=== PATIENT | female | born 2005 | race Caucasian/White ===

== ENCOUNTER 2024-10-29 18:42 | Emergency (ER) | payer MEDICAID, SELFPAY ==
[2024-10-29 18:47] VITALS: BP 103/82; PULSE 77; TEMP 36.4; O2SAT 95; BMI 21.7
--- NOTE | 2024-10-29 19:00 | CT_ITS ---
[address] [address] Patient Name: RONALDO DUNLAP MRN: [facility]:[id number] date: 2005 Sex: F Assigned Patient Location: ER Current Patient Location: ER Accession/Order Number: [id number] Exam Date: 10/29/2024 19:57 Report Date: 10/29/2024 20:30 At the request of: RAIZA OVIEDO Procedure: CT abdomen pelvis w con EXAM: CT abdomen pelvis w con HISTORY: ABDOMINAL PAIN COMPARISON: None. TECHNIQUE: CT abdomen pelvis with IV contrast 100 mL Omnipaque 300. Axial scans with reformatted coronal and sagittal images. Individualized radiation dose reduction used for this exam. FINDINGS: Lower chest: Lung bases clear, no acute abnormality. ABDOMEN: Liver, adrenal glands, pancreas spleen unremarkable. Normal-appearing fluid-filled gallbladder. No duct dilatation. No ascites or free fluid. No adenopathy. Normal enhancement of aorta and branches. Normal venous enhancement. Normal symmetric renal enhancement without mass or hydronephrosis. Normal ureters. No bowel dilatation ileus or obstruction. Prominent bowel wall possible edema ascending, transverse and left colon versus artifact from under distention. No adjacent pericolonic fluid or inflammation. Small to moderate stool the rectum which is unremarkable. Normal-appearing appendix right pelvis without surrounding fluid or inflammation. PELVIS: No solid mass adenopathy or free fluid. Small follicle right ovary. Uterus unremarkable. Normal-appearing bladder MUSCULOSKELETAL: No suspicious bony abnormality. CT/CT abdomen pelvis w con IMPRESSION: 1. Diminished caliber possible bowel wall edema ascending, transverse and left colon versus artifact from under distention. Correlate for possible colitis. No definite pericolonic fluid or inflammation. 2. Exam otherwise unremarkable. No ascites or free fluid. Normal-appearing appendix. Electronically authenticated by: NOHEMY YO Date: 10/29/2024 20:30
--- NOTE | 2024-10-29 19:03 | ED_ITS ---
HPI HPI - General Adult General Chief complaint: Nausea/Vomiting/Diarrhea Stated complaint: VOMITING Time Seen by Provider: 10/29/24 18:52 Source: patient and family Mode of arrival: walk-in Limitations: no limitations History of Present Illness HPI narrative: 19-year-old female to the emergency department with chief complaint of abdominal pain. Patient reports she woke up this morning with cramping upper abdominal pain. She reports associate with nausea and some vomiting. She did have a loose bowel movement today. She denies any blood in the stool. No blood in the vomit. She has not been able to keep any medications down today. She did take some Zofran at home with relief of symptoms. No fever or chills. She denies . Related Data Home Medications ?Medication ?Instructions ?Recorded ?Confirmed No Known Home Medications 10/29/24 10/29/24 Previous Rx's ?Medication ?Instructions ?Recorded dicyclomine 10 mg capsule 10 mg PO QID PRN abdominal pain 10/29/24 #12 caps famotidine 20 mg tablet 20 mg PO BID 6 weeks #84 tabs 10/29/24 ondansetron 4 mg disintegrating 4 mg PO Q8H PRN nausea and 10/29/24 tablet vomiting 4 days #16 tabs promethazine 25 mg rectal 25 mg MI Q6H PRN nausea and 10/29/24 suppository vomiting #12 ea Allergies Allergy/AdvReac Type Severity Reaction Status Date / Time No Known Drug Allergies Allergy Verified 10/29/24 18:47 Opioid HPI Opioid Management Most Recent Opioid Data: Last Pain Scale 8 10/29/24 20:28 10/29/24 Last ED Pain Assessment 10/29/24 20:28 Review of Systems ROS Status of ROS 10 or more systems reviewed and unremark able except as noted in history and below PFSH PFSH Social History Little interest or pleasure in doing things: not at all Feeling down, depressed, or hopeless: not at all Exam Narrative Exam Narrative: VITALS: I have reviewed the triage vital signs. GENERAL: Uncomfortable appearing adult female holding upper abdomen. Mother at the bedside NEURO: Alert and oriented. Moves all extremities. Face is symmetric and expressive. EYES: PERRL. No scleral icterus or conjunctival injection. No discharge. HENT: Normocephalic, atraumatic. Hearing is grossly intact. Nares grossly patent and without discharge. Mucous membranes moist. NECK: No JVD. Patient moves neck without restriction. CARDIO: Rhythm regular. Normal rate. No murmur, rub, or gallop. Pulses equal bilaterally in the upper and lower extremity. No lower extremity edema. PULM: Lungs clear to auscultation in all melgar. No wheezes, rales, or rhonchi. No conversational dyspnea. No splinting, stridor, or accessory muscle use. GI/: Abdomen is soft. Epigastric tenderness. No rebound or guarding. Normoactive bowel sounds. EXTREMITIES: Symmetric muscle bulk. No joint swelling. No clubbing, cyanosis, or deformity. SKIN: Warm and dry. Normal turgor. No rash or lesions appreciated. PSYCH: Anxious Constitutional Vital Signs, click to edit/add: Last Vital Signs Temp 97.6 F 10/29/24 18:47 Pulse 99 H 10/29/24 20:35 Resp 18 10/29/24 20:35 BP 109/60 10/29/24 20:35 Pulse Ox 100 10/29/24 20:35 O2 Del Method Room Air 10/29/24 18:47 Course Vital Signs Vital signs: Vital Signs Temperature 97.6 F 10/29/24 18:47 Pulse Rate 77 10/29/24 18:47 Respiratory Rate 20 10/29/24 18:47 Blood Pressure 103/82 10/29/24 18:47 Pulse Oximetry 95 10/29/24 18:47 Oxygen Delivery Method Room Air 10/29/24 18:47 Temperature 97.6 F 10/29/24 18:47 Pulse Rate 99 H 10/29/24 20:35 Respiratory Rate 18 10/29/24 20:35 Blood Pressure 109/60 10/29/24 20:35 Pulse Oximetry 100 10/29/24 20:35 Oxygen Delivery Method Room Air 10/29/24 18:47 Medical Decision Making MDM Narrative Medical decision making narrative: 19-year-old female to the emergency department chief complaint of upper abdominal pain, nausea, vomiting. Vital stable, the patient is afebrile. She is uncomfortable and tender in her upper abdomen. No peritoneal signs. Differential includes gastroenteritis, pancreatitis, acute cholecystitis. Basic labs, CT abdomen pelvis, Toradol/Bentyl/Zofran/Pepcid/ morphine for symptoms. Patient agrees with this plan. Lab work reviewed and noted. She does have a leukocytosis. Chemistry is unremarkable. Lipase normal. hCG is negative. CT abdomen pelvis results were reviewed. Question of some colitis which does correlate gastroenteritis symptoms. No other acute findings. Patient's symptoms did improve significantly. She felt much improved. She was given a liter of fluids as she does look a little dry on her labs. She was able to tolerate oral intake. She is appropriate for discharge home. Discussed g radual return, brat diet, use of medications for symptoms. She was prescribed Bentyl, Zofran, Pepcid, MI Phenergan if she cannot take oral. GI referral if her symptoms do not improve or further evaluation of colitis. Return precautions were discussed. All questions were answered. The patient was discharged home. Medical Records Medical records reviewed: Yes I reviewed the patient's medical records Lab Data Lab results reviewed: Yes I reviewed the patient's lab results Labs: Lab Results 10/29/24 Range/Units 19:16 WBC 21.8 H (4.0-11.0) 10^3/uL RBC 4.63 (4.20-5.40) 10^6/uL Hgb 13.8 (12.0-16.0) g/dL Hct 39.7 (36.0-48.0) % MCV 85.7 (81.0-99.0) fL MCH 29.8 (26.7-34.0) pg MCHC 34.8 (29.9-35.2) g/dL RDW 11.7 (11.0-15.0) % Plt Count 296 (150-450) 10^3/uL MPV 9.1 L (9.5-13.5) fL Seg Neuts % (Manual) 94.0 H (43.0-75.0) Band Neutrophils % 0.0 (0-5) % Lymphocytes % (Manual) 4.0 L (20.5-60.0) % Monocytes % (Manual) 2.0 (1.7-12.0) % Eosinophils % (Manual) 0.0 L (0.9-7.0) % Basophils % (Manual) 0.0 L (0.2-2.0) % Neutrophils # (Manual) 20.49 H (1.4-6.5) 10^3/uL Band Neutrophils # 0.0 (0.0-0.3) 10^3/uL Lymphocytes # (Manual) 0.87 L (1.20-3.80) 10^3/uL Monocytes # (Manual) 0.43 (0.30-0.80) 10^3/uL Eosinophils # (Manual) 0.00 (0.00-0.70) 10^3/uL Basophils # (Manual) 0.00 (0.00-0.10) 10^3/uL Sodium 143 (136-145) mmol/L Potassium 3.6 (3.5-5.1) mmol/L Chloride 104 (98-107) mmol/L Carbon Dioxide 17.4 L (21.0-32.0) mmol/L Anion Gap 25.2 BUN 9.0 (7.0-18.0) mg/dL Creatinine 1.12 H (0.55-1.02) mg/dL Est GFR ( Amer) >60 (>=60 mL/min/1.73m^2) Est GFR (Non-Af Amer) >60 (>=60 mL/min/1.73m^2) BUN/Creatinine Ratio 8.0 Glucose 150 H (74-106) mg/dL Calcium 10.1 (8.5-10.1) mg/dL Total Bilirubin 0.8 (0.2-1.0) mg/dL AST 17 (15-37) U/L ALT 22 (14-59) U/L Alkaline Phosphatase 59 (46-116) U/L Total Protein 8.2 (6.4-8.2) g/dL Albumin 4.6 (3.4-5.0) g/dL Globulin 3.6 g/dL Albumin/Globulin Ratio 1.3 Lipase 18.0 (16.0-77.0) U/L Serum HCG, Qual Negative (NEGATIVE) Imaging Data CT scan - abdomen: Attestation: I have reviewed the pertinent imaging results. Radiologist's impression: ITS Impressions Abdomen/Pelvis CT 10/29/24 19:00 IMPRESSION: 1. Diminished caliber possible bowel wall edema ascending, transverse and left colon versus artifact from under distention. Correlate for possible colitis. No definite pericolonic fluid or inflammation. 2. Exam otherwise unremarkable. No ascites or free fluid. Normal-appearing appendix. Electronically authenticated by: NOHEMY YO Date: 10/29/2024 20:30 Discharge Plan Discharge Chief Complaint: Nausea/Vomiting/Diarrhea Clinical Impression: Gastroenteritis Patient Disposition: Home, Self-Care Time of Disposition Decision: 21:36 Condition: Good Mode of Transportation: Private Vehicle Prescriptions / Home Meds: New ondansetron 4 mg tablet,disintegrating 4 mg PO Q8H PRN (Reason: nausea and vomiting) 4 Days Qty: 16 0RF dicyclomine 10 mg capsule 10 mg PO QID PRN (Reason: abdominal pain) Qty: 12 0RF famotidine 20 mg tablet 20 mg PO BID 42 Days Qty: 84 0RF promethazine 25 mg suppository 25 mg MI Q6H PRN (Reason: nausea and vomiting) Qty: 12 0RF No Action No Known Home Medications Print Language: [place]ian Instructions: Acute Nausea and Vomiting (ED), Colitis (ED) Additional Instructions: Call the office of your primary care doctor to arrange for follow-up within the above-stated timeframe. Your ED visit was focused on your acute issue and does not replace primary care. You should review your labs, imaging, and diagnoses from this ED visit with your primary care physician. There may be non-emergent/ incidental findings that need further evaluation. You should review your vital signs including blood pressure with your PCP. If you were prescribed medications you should discuss possible side-effects and drug interactions with your pharmacist. Call 911 or go to the nearest Emergency Department if you develop any new or worsening symptoms. Seek immediate medical attention if you develop: worsening abdominal pain, new or worsening nausea, new or worsening vomiting, new or worsening diarrhea, chest pain, shortness of breath, pain with urination, problems urinating, fever, chills, weakness, or any new or worsening symptoms. Referrals: Leida Tucker MD [Physician] - 1 week (Follow-up with GI if your symptoms continue for further evaluation of colitis) MARY JACOBS [Primary Care Provider] - 1 week
[2024-10-29] MEDS: ONDANSETRON PF 4 MG/2 ML VIAL IV (19:12)
[2024-10-29] MEDS: KETOROLAC TROMETHAMINE 30 MG/ML VIAL 15 MG IVP (19:12)
[2024-10-29] MEDS: FAMOTIDINE/PF 20 MG/2 ML VIAL IV (19:12)
[2024-10-29] MEDS: DICYCLOMINE HCL 20 MG/2 ML VIAL IM (19:20)
[2024-10-29 19:26] LABS: Hematocrit 39.7 % (36.0-48.0); Hemoglobin 13.8 g/dL (12.0-16.0); Mean Corpuscular HGB Conc 34.8 g/dL (29.9-35.2); Mean Corpuscular Hemoglobin 29.8 pg (26.7-34.0); Mean Corpuscular Volume 85.7 fL (81.0-99.0); Mean Platelet Volume 9.1 fL (9.5-13.5); Platelet Count 296 10^3/uL (150-450); Red Blood Count 4.63 10^6/uL (4.20-5.40); Red Cell Distribution Width 11.7 % (11.0-15.0); White Blood Count 21.8 10^3/uL (4.0-11.0)
[2024-10-29 19:41] LABS: Alanine Aminotransferase 22 U/L (14-59); Albumin Globulin Ratio 1.3; Albumin Level 4.6 g/dL (3.4-5.0); Alkaline Phosphatase 59 U/L (46-116); Anion Gap 25.2; Aspartate Amino Transferase 17 U/L (15-37); Bilirubin Total 0.8 mg/dL (0.2-1.0); Calcium 10.1 mg/dL (8.5-10.1); Carbon Dioxide 17.4 mmol/L (21.0-32.0); Chloride 104 mmol/L (98-107); Estimated GFR (African America >60 (>=60 mL/min/1.73m^2); Estimated GFR (Non-African Ame >60 (>=60 mL/min/1.73m^2); Globulin 3.6 g/dL; Glucose 150 mg/dL (74-106); HCG Qualitative NEGATIVE (NEGATIVE); Internal Control Within Normal Limits; Lymphocytes Absolute Manual 0.87 10^3/uL (1.20-3.80); Monocytes Absolute Manual 0.43 10^3/uL (0.30-0.80); Potassium 3.6 mmol/L (3.5-5.1); Segmented Neut Absolute Manual 20.49 10^3/uL (1.4-6.5); Sodium 143 mmol/L (136-145); Total Protein 8.2 g/dL (6.4-8.2)
[2024-10-29] MEDS: MORPHINE SULFATE 4 MG/ML VIAL IV (20:26)
[2024-10-29 20:35] VITALS: BP 109/60; PULSE 99; O2SAT 100
[2024-10-29] MEDS: 0.9 % SODIUM CHLORIDE 1,000 ML 1000 ML IV (21:31)
[2024-10-29 21:48] VITALS: PULSE 99; O2SAT 100
[2024-10-29] MEDS: ONDANSETRON 4 MG RAPDIS TABLET SL (21:59)
[2024-10-29] MEDS: DICYCLOMINE HCL 10 MG CAPSULE 20 MG PO (21:59)
== END 2024-10-29 22:02 | disposition home or self-care (01) ==
PROVIDERS: Emergency Provider Student in an Organized Health Care Education/Training Program; PCP Nurse Practitioner Family
DX: K52.9 Noninfective gastroenteritis and colitis, unspecified (principal)
CPT/HCPCS: 36415; 74177; 80053; 83690; 84703; 85007; 85027; 96372; 96374; 96375; 99285; J0500; J1885; J2270; J2405; Q0162; Q9967